=== PATIENT | male | born 1970 | race Caucasian/White ===

== ENCOUNTER 2021-12-24 01:23 | Emergency (ER) | payer OTHER, MEDICAID, SELFPAY ==
[2021-12-24] VITALS (7 sets, daily range): BP systolic 130–163; BP diastolic 76–94; PULSE 103–122; RESP 16–29; TEMP 37.2; O2SAT 94–98; BMI 27.1
--- NOTE | 2021-12-24 01:32 | DI.RAD.S_ITS ---
PROCEDURE: XR CHEST 1V INDICATIONS: chest pain TECHNIQUE: One view of the chest was acquired. COMPARISON: None. FINDINGS: Surgical changes and devices: None. Lungs and pleura: Lungs are clear. No pleural effusions or pneumothorax. Mediastinum: Mediastinal contours appear normal. Heart size is normal. Bones and chest wall: No suspicious bony lesions. Overlying soft tissues appear unremarkable. IMPRESSION: 1. No acute cardiopulmonary disease. Dictated by: Ronald Jarvis M.D. on 12/24/2021 at 1:53 Approved by: Ronald Jarvis M.D. on 12/24/2021 at 1:54
--- NOTE | 2021-12-24 01:42 | ED_ITS ---
HPI - Chest Pain General Chief Complaint: Chest Pain Stated Complaint: ETOH / Chest pain Time Seen by Provider: 12/24/21 01:32 Source: EMS Mode of arrival: EMS History of Present Illness HPI narrative: The patient arrives by EMS with chest pain. He developed substernal chest pain earlier tonight. He has been drinking heavily, stating he had several fifths tonight. He has developed nausea vomiting, apparently had chest pain before vom iting. He has no chronic cardiac issues or respiratory issues. He has no history of ulcers. He is not familiar with the term, pancreatitis. He has upper abdominal pain, not radiating to his back. With his vomiting has no hematemesis. He denies headache, sore throat, cough or fever. He is on no prescription medications, he denies significant medical problems. He cannot tell me when he had his last drink tonight. Related Data Allergies Allergy/AdvReac Type Severity Reaction Status Date / Time No Known Drug Allergies Allergy Verified 12/24/21 01:31 Review of Systems Constitutional Constitutional: Denies body ache(s), Denies chills, Denies fatigue, Denies fever(s), Denies headache(s) and Denies malaise Eyes Eyes: Denies change in vision ENT Ears, Nose, Mouth, and Throat: Denies vertigo, Denies dizziness, Denies headache(s), Denies sinus pressure and Denies sore throat Cardiovascular Cardiovascular: Reports as per HPI and Denies dyspnea Respiratory Respiratory: Denies cough and Denies dyspnea Gastrointestinal Gastrointestinal: Reports as per HPI Genitourinary Comments: No urinary complaints Musculoskeletal Musculoskeletal: Denies back pain, Denies myalgias and Denies myalgias Integumentary/Breasts Skin/Breast: Denies rash and Denies sores Neurologic Neurologic: Denies confusion, Denies vertigo, Denies dizziness, Denies headache(s) and Denies memory loss Psychiatric Psychiatric: Denies confusion, Denies depression and Denies memory loss Endocrine Endocrine: Denies fatigue Hematologic/Lymphatic On Anticoagulants: No Patient History Medical History (Updated 12/24/21 @ 05:58 by Fidel Owusu MD) No significant past medical history Surgical History (Updated 12/24/21 @ 01:46 by Fidel Owusu MD) No significant past surgical history Social History Smoking Status: Current every day smoker Smoking Status: Current every day smoker Alcohol type: hard liquor Substance Use Type: does not use Exam Initial Vital Signs Initial Vital Signs: Vital Signs Temperature 98.9 F 12/24/21 01:28 Pulse Rate 115 H 12/24/21 01:28 Respiratory Rate 16 12/24/21 01:28 Blood Pressure 163/94 H 12/24/21 01:28 Pulse Oximetry 98 12/24/21 01:28 Const General: anxious, disheveled and intoxicated appearing Nutritional Appearance: obese HENMT Head: normocephalic and atraumatic Face and sinus: normal facial exam Mouth: oral mucosae normal Throat: posterior oropharynx normal Eyes Pupils: PERRL EOM: EOM intact bilaterally and No nystagmus Neck Neck: supple and No lymphadenopathy Resp Effort & Inspection: normal respiratory effort Auscultation: clear to auscultation bilaterally Cardio Rate: regular rate Rhythm: regular rhythm Heart Sounds: S1 normal, S2 normal and no murmurs GI Inspection: normal to inspection Palpation: soft Percussion: dullness to percussion Auscultation: normal bowel sounds and other (Mild epigastric abdominal discomfort without guarding or rebound.) Back/Spine/Pelvis Back: normal to inspection Skin General: no rashes or lesions noted Neuro General: patient alert, patient awake, patient oriented x3 and no focal motor deficits Cranial Nerves: No nystagmus Extrem General: normal to inspection, full ROM and no calf tenderness Psych Appearance: disheveled Speech and Movement: agitated Course Orders Ordered: Discontinued Medications Al Hydrox/Mg Hydrox/Simethicone 20 ml/ Lidocaine HCl 15 ml 0 ml PO NOW ONE Stop: 12/24/21 04:30 Last Admin: 12/24/21 04:36 Dose: 35 ml Documented by: AURA Sodium Chloride (Normal Saline 0.9%) 1,000 mls @ 150 mls/hr IV CONT BOBBI Last Infusion: 12/24/21 03:07 Dose: 0 mls/hr Documented by: Admin: 12/24/21 01:53 Dose: 150 mls/hr Documented by: ANGELINA Ondansetron HCl (Ondansetron 4 Mg/2 Ml Inj) 4 mg IV NOW ONE Stop: 12/24/21 01:33 Last Admin: 12/24/21 01:53 Dose: 4 mg Documented by: ANGELINA Pantoprazole Sodium (Pantoprazole 40 Mg Vial) 40 mg IV NOW ONE Stop: 12/24/21 04:30 Last Admin: 12/24/21 04:36 Dose: 40 mg Documented by: AURA Vital Signs Vital signs: Vital Signs - 8 hr 12/24/21 01:28 12/24/21 01:47 12/24/21 02:00 Temperature 98.9 F Pulse Rate 115 H 110 H 105 H Respiratory Rate 16 17 17 Blood Pressure 163/94 H Pulse Oximetry 98 12/24/21 02:30 12/24/21 03:00 12/24/21 03:30 Temperature Pulse Rate 122 H 103 H 103 H Respiratory Rate 29 H 27 H 23 Blood Pressure Pulse Oximetry MDM - Chest Pain Lab Data Result diagrams: 12/24/21 02:20 12/24/21 01:38 Labs: Lab Results 12/24/21 12/24/21 12/24/21 Range/Units 01:38 02:20 03:27 WBC 11.6 H (4.5-11.0) X10^3/uL RBC 5.05 (4.5-5.9) X10^6/uL Hgb 14.0 (13.5-17.5) g/dL Hct 41.8 (41-53) % MCV 82.8 (80-100) fL MCH 27.7 (26-34) PG MCHC 33.5 (30-36) % RDW 14.6 (11.6-14.8) % Plt Count 161 (150-400) X10^3/uL Neut % (Auto) 77.7 H (50-75) % Lymph % (Auto) 15.6 L (25-40) % [place] % (Auto) 5.9 (3-14) % Eos % (Auto) 0.2 L (2-4) % Baso % (Auto) 0.6 (0-2) % Neut # (Auto) 9000 H (8406-1207) /uL Lymph # (Auto) 1800 (9360-4003) /uL [place] # (Auto) 700 (0-900) /uL Eos # (Auto) 0 (0-450) /uL Baso # (Auto) 100 (0-100) /uL Sodium 143 (137-145) mmol/L Potassium 4.2 (3.4-5.1) mmol/L Chloride 106 (98-107) mmol/L Carbon Dioxide 16 L (22-32) mmol/L BUN 20 (9-20) mg/dL Creatinine 1.18 (0.66-1.25) mg/dL Estimated GFR > 60 (>60) mL/min BUN/Creatinine Ratio 16.9 (6-22) Glucose 106 H (70-100) mg/dL Calcium 8.6 (8.4-10.2) mg/dL Total Bilirubin 0.6 (0.2-1.3) mg/dL AST 69 H (17-59) IU/L ALT 48 (<50) IU/L Alkaline Phosphatase 141 H (38-126) U/L Total Creatine Kinase 721 H (55-170) U/L CK-MB (CK-2) 11.50 H (<2.37) ng/mL CK-MB (CK-2) Rel Index 1.6 (1.5-5.0) % Troponin I < 0.012 < 0.012 (0.01-0.034) ng/mL Total Protein 8.4 H (6.3-8.2) g/dL Albumin 4.9 (3.5-5.0) g/dL Globulin 3.5 (1.7-4.1) g/dL Albumin/Globulin Ratio 1.4 (1.0-2.8) Lipase 276 (23-300) U/L Ethyl Alcohol 192 H ( - 10) mg/dL ECG Data Attestation: I personally reviewed and interpreted this ECG as follows: (Sinus tachycardia rate 114 beats per minute. Normal intervals. No ectopy. No acute ST T wave changes.) [facility] Narrative Medical decision making narrative: His initial EKG shows sinus tachycardia, no concerning changes. He has abdominal discomfort in lower chest discomfort, likely also said with the alcohol. Troponin was taking twice and is negative. He initially had Zofran. I then later gave a GI cocktail as well as Protonix. He is resting common, he does not feel well. He is much improved since arrival. Discharge Plan Departure Patient Disposition: Home Clinical Impression: Alcohol intoxication Instructions: Alcohol Use Disorder Activity Restrictions/Additional Instructions: rest at home. When you open moving drink plenty of water, take in a bland diet only until your feeling better. Take Tylenol or Advil as needed for body aches. Avoid heavy use of alcohol. Return here as needed.
[2021-12-24] MEDS: ONDANSETRON 4 MG/2 ML INJ IV (01:53)
[2021-12-24] MEDS: SODIUM CHLORIDE 0.9% 1,000 ML 150 ML IV (01:53)
[2021-12-24 02:07] LABS: Alanine Aminotransferase 48 IU/L (<50); Albumin 4.9 g/dL (3.5-5.0); Albumin Globulin Ratio 1.4 (1.0-2.8); Alkaline Phosphatase 141 U/L (38-126); Aspartate Aminotransferase 69 IU/L (17-59); BUN Creatinine Ratio 16.9 (6-22); Bilirubin Total 0.6 mg/dL (0.2-1.3); Blood Urea Nitrogen 20 mg/dL (9-20); Calcium 8.6 mg/dL (8.4-10.2); Carbon Dioxide 16 mmol/L (22-32); Chloride 106 mmol/L (98-107); Creatine Kinase 721 U/L (55-170); Estimated Glomerular Filt Rate > 60 mL/min (>60); Ethanol (ETOH) 192 mg/dL; Globulin 3.5 g/dL (1.7-4.1); Glucose 106 mg/dL (70-100); HEMOLYSIS 28 (0-50); Lipase 276 U/L (23-300); Potassium 4.2 mmol/L (3.4-5.1); Sodium 143 mmol/L (137-145); Total Protein 8.4 g/dL (6.3-8.2)
[2021-12-24 02:18] LABS: Troponin I < 0.012 ng/mL (0.01-0.034)
[2021-12-24 02:21] LABS: CKMB % Relative Index 1.6 % (1.5-5.0)
[2021-12-24 02:33] LABS: Add Manual Diff / Slide Review NO; Basophils Absolute Auto 100 /uL (0-100); Basophils Percent Auto 0.6 % (0-2); Eosinophils Absolute Auto 0 /uL (0-450); Eosinophils Percent Auto 0.2 % (2-4); Hematocrit 41.8 % (41-53); Lymphocytes Absolute Auto 1800 /uL (1100-4500); Lymphocytes Percent Auto 15.6 % (25-40); Mean Corpuscular HGB Conc 33.5 % (30-36); Mean Corpuscular Hemoglobin 27.7 PG (26-34); Mean Corpuscular Volume 82.8 fL (80-100); Monocytes Absolute Auto 700 /uL (0-900); Monocytes Percent Auto 5.9 % (3-14); Neutrophils Absolute Auto 9000 /uL (1500-7000); Neutrophils Percent Auto 77.7 % (50-75); Platelet Count 161 X10^3/uL (150-400); Red Blood Cell Count 5.05 X10^6/uL (4.5-5.9); Red Cell Distribution Width 14.6 % (11.6-14.8); White Blood Cell Count 11.6 X10^3/uL (4.5-11.0)
[2021-12-24 03:58] LABS: Troponin I < 0.012 ng/mL (0.01-0.034)
[2021-12-24] MEDS: PANTOPRAZOLE 40 MG VIAL IV (04:36)
[2021-12-24] MEDS: MAG HYDROX/ALUMINUM/SIMETH SUS 20 ML, LIDOCAINE VISCOUS 2% 15 ML PO (04:36)
== END 2021-12-24 06:24 | disposition home or self-care (01) ==
PROVIDERS: Emergency Provider Emergency Medicine
DX: R07.9 Chest pain, unspecified (principal); F10.129 Alcohol abuse with intoxication, unspecified; Y90.6 Blood alcohol level of 120-199 mg/100 ml; R11.2 Nausea with vomiting, unspecified
CPT/HCPCS: 36415; 71045; 80053; 80320; 82550; 82553; 83690; 84484; 85025; 93005; 93010; 96374; 96375; 99284; C9113; J2405